=== PATIENT | male | born 1975 | race Caucasian/White ===

== ENCOUNTER 2025-02-17 17:42 | Inpatient (IN) | payer OTHER, SELFPAY ==
[2025-02-17] VITALS (8 sets, daily range): BP systolic 115–153; BP diastolic 64–93; BMI 28.7
--- NOTE | 2025-02-17 10:00 | ED.GENMED ---
History of Present Illness
General
Chief Complaint: Eye Problems
Source: patient and spouse
Exam Limitations: none
Time Seen by Provider: 02/17/25 09:47
History of Present Illness
History of Present Illness:
49-year-old male complaining of double vision. Started yesterday. Relatively sudden onset. Initially had some slight nausea with it. No headache now no nausea now no other neurologic symptoms. Patient is diabetic. No history of same. Patient
notes when he looks inferiorly it is better and worse with upward gaze. Double vision is a horizontal double vision not vertical
Past History
Past History
ED Past Medical History: Hypercholesterolemia and NIDDM
ED Past Surgical History: Urological
Social History
Tobacco: Non-smoker
Personal:
Living: with family
Employment: Employed
Family History
Family History: Early CAD (Father)
Review of Systems
Review of Systems
All Other Systems: Not applicable
Neurological: Denies dizzy, weakness or numbness
Phy Exam
Physical Exam
Physical Exam:
GENERAL: Alert and oriented in no apparent distress
EYE: Orbits normal.
NECK: Supple, no carotid bruit.
ENT: Pharynx without erythema
CARDIAC: Regular rate and rhythm without any obvious murmurs.
LUNGS: Clear breath sounds,normal
ABDOMEN: Soft, without focal tenderness or distention
NEUROLOGICAL: Alert and oriented , cranial nerves II through XII intact except some decreased upward gaze to the right eye. Pupils are equal in size. Small but reactive. Symmetrical. No lid lag. Ckswye-xa-bbyq is normal. Speech is normal. No
facial droop. Upper lower extremity strength normal. Light touch intact
SKIN: Warm and dry, no rash or lesion, no discoloration, skin intact.
MUSCULOSKELETAL: No edema,no deformity.Good color
PSYCH: Normal and appropriate interaction.
Course
Orders/Labs/Results
Orders:
Orders
02/17/25 10:03
Electrocardiogram (*1) Stat
Reason for Study: Other
Other Reason for Exam: neuro symptoms
Cardiac Monitoring- Treatment ONCE
EKG- Treatment ONCE
IV Insert/Care/Rem.- Treatment PRN
02/17/25 10:16
CT Head & Neck Angio W/wo IV Urgent
Comment:
Reason For Exam: Double vision
02/17/25 10:18
Consult Neurology [NEUROLOGY CONSULT] Urgent
Consulting Provider: Samson Del Castillo
Was physician already notified: Yes
02/17/25 10:35
Basic Metabolic Panel Urgent
Complete Blood Count/With Diff Urgent
MR Brain Without Contrast Urgent
Comment:
Reason For Exam: Double vision
Recent pill cam endoscopy?: No
02/17/25 13:50
Aspirin Chewable [Low Strength Aspirin] 81 mg PO NOW STA
Clopidogrel Bisulfate [Plavix] 75 mg PO NOW STA
Abnormal Lab Results
02/17/25
10:35
WBC 11.7 H 10^3/uL
(4.8-10.8)
MCHC 32.2 L g/dL
(33.0-37.0)
MPV 11.6 H fL
(7.4-10.4)
Absolute Neuts (auto) 9.0 H 10^3/uL
(1.4-6.5)
Neutrophils % 76.6 H %
(42.2-75.2)
Lymphocytes % 17.8 L %
(20.5-51.1)
BUN 21 H mg/dl
(9-20)
Glucose 213 H mg/dl
(70-99)
02/17/25 10:35
02/17/25 10:35
Vital Signs
Initial and Last Documented VS:
Initial Vital Signs
Temp Pulse Resp BP Pulse Ox
98.1 F 70 16 153/93 98
02/17/25 09:41 02/17/25 09:41 02/17/25 09:41 02/17/25 09:41 02/17/25 09:41
Last Documented Vital Signs
Temp Pulse Resp BP Pulse Ox
98.1 F 70 16 153/93 98
02/17/25 09:41 02/17/25 09:41 02/17/25 09:41 02/17/25 09:41 02/17/25 10:03
MDM/Problems Addressed
Differential Diagnosis Includes:
New onset double vision. I lean towards a 3rd cranial nerve issue. Workup in progress. Will discuss with neurology.
*Radiology
Radiology exam reviewed: radiology read reviewed (No acute findings on MRI. Common carotid narrowing. Dissection versus vasculitis versus hematoma)
*Pulse Oximetry
SaO2: 98
Oxygen Mode of Delivery: Room air
Patient hypoxic: no
*EKG
Interpreted by ED Provider?: Yes
Interpretation: normal
Comparison EKG: no changes
Heart Rate: 63
Rate: normal
Rhythm: sinus
[place]: normal axis
Interval: normal interval
QRS Pattern: normal QRS
Ischemia: no ischemia
*Critical Care Note
Total Time (30-74mins, 75-104mins- exclusive of procedures): Not Applicable
Update Note
Update Note:
Discussed with neurology. Recommend CTA/perfusion. And eventual MRI.
1355... Patient in MRI. I held on the aspirin and Plavix because I wanted to be sure there was no bleed. There is no bleed on CT. There is carotid narrowing in the right. Vasculitis dissection along the differential. Currently in MRI.
updated
Multiple discussions with neurology). Ultimately it is felt best to admit this patient expedite workup. MRI brain and neck. Echocardiogram.
ED Attending Note
-
Portions of this chart may have been created with voice recognition software.� Occasional wrong word or��sound alike� substitutions may have occurred due to the inherent limitations of voice recognition software.
Discharge Plan
Departure
Patient Disposition: Admit
Date of Disposition: 02/17/25
Time of Disposition: 16:06
Presentation/result/management discussed w/ accepting MD/DO: Neurology
Discharge Problem:
Double vision, Common carotid narrowing right common ca
Prescriptions:
No Action
pravastatin 40 mg tablet
40 mg PO DAILY
Theragen Tablet
1 tab PO DAILY
flaxseed oil [[place]-3 Flaxseed Oil] 1,000 mg Capsule
1,000 mg PO BID
insulin aspart U-100 [Novolog FlexPen U-100 Insulin] 100 unit/mL (3 mL) insulin pen
1 sliding scale dose SC AC
berberine-herbal drugs Capsule
1 cap PO BID
metformin 500 mg tablet
500 mg PO BID
insulin glargine [Basaglar KwikPen U-100 Insulin] 100 unit/mL (3 mL) insulin pen
12 unit SC HS
Referrals:
Esvin Vincent MD [Family Provider, Family Practice]
Interventions
Interventions:
*Risk Screen - Suicide Last Done: 02/17/25 09:41
*Neglect/Abuse Screening Last Done: 02/17/25 09:41
Discharge Date and Time
Print Language: CHILEAN
[2025-02-17 10:46] LABS: Hematocrit 46.6 % (39.0-52.0); Hemoglobin 15.0 g/dL (13.0-18.0); Mean Corp Hgb Conc. 32.2 g/dL (33.0-37.0); Mean Corpuscular Volume 87.3 fL (80.0-94.0); Nucleated Red Blood Cells % 0 % (-); Platelet Count 260 10^3/uL (130-400); Red Cell Dist. Width 12.9 % (11.5-14.5)
[2025-02-17 11:15] LABS: Blood Urea Nitrogen 21 mg/dl (9-20); Calcium 9.7 mg/dl (8.4-10.2); Carbon Dioxide 28 mmol/L (22-30); Chloride 103 mmol/L (98-107); Glucose 213 mg/dl (70-99); Potassium 4.8 mmol/L (3.5-5.1); Sodium 139 mmol/L (135-145); eGFR > 60.00
[2025-02-17] MEDS: LOW STRENGTH ASPIRIN 81 MG PO (14:52)
[2025-02-17] MEDS: PLAVIX 75 MG PO (14:52)
--- NOTE | 2025-02-17 15:23 | CON.NEURO4 ---
Consultation - Neurology 4
-
CONSULTING PHYSICIAN:
REFERRING PHYSICIAN:
DICTATED BY:
DATE/TIME OF REQUEST:
DATE/TIME OF CONSULTATION:
Reason for Consultation:
History of Present Illness:
This is a (age) year old (left/right) handed (male/female) who has presented to the hospital with (chief complaint). Patient's symptoms began (time) ago, when (describe).
- For stroke patients please mention last known well time.
- Describe associated symptoms, if any. Describe any treatment taken and intervention made.
- Describe the current status of symptoms.
- Describe if patient is compliant with current medications - name the medications and follow up with the physician.
- Describe if patient has had any similar symptoms in the past.
- For stroke patients, mention if patient has had a prior stroke and if there are any residual deficits.
- If the history has been obtained from sources other than the patient, mention 'this history has been contributed to by'
and name the source: family/medical record/senior care/caregiver/nursing ect.
Past Medical History:
Surgical History:
Family History:
Social History:
Allergies:
Home Medications:
Review of Symptoms:
Patient denies any fever, headache, chest pain, shortness of breath, GI or symptoms.
�Per the HPI.�All systems are reviewed negative except above.
�- Remove any of these problems that patient may have complained about in the HPI.
�- If patient is unresponsive, intubated or demented, say 'Per the HPI. I am unable to obtain a complete review of systems�because of patient's inability to provide history.'
Vital Signs:
The patient has a blood pressure of ( ) , heart rate ( ) , temperature ( ) , respiratory rate ( ) and a pulse ox of ( ) on
(room air / oxygen by nasal cannula / ventilator).
Physical Exam:
The patient is afebrile, heart sounds S1 and S2 are (regular / irregular), and chest is clear to auscultation bilaterally.
- If not clear, describe.
NIH Stroke Scale (if applicable):
I performed the NIH stroke scale on the patient on (date & time). The patient scored ( ) points on the NIH stroke scale assessment, which were assigned as follows:
Neurologic Examination:
The patient is awake, alert and oriented x 3. (He/She) is able to follow commands and answer questions appropriately. There is no aphasia or dysarthria. On cranial nerve assessment, pupils are 3 mm bilateral, round and reactive to light and
accommodation. Visual mitchell are full. Extraocular movements are intact. Facial sensations are intact and bilaterally symmetrical, there is no facial asymmetry. Hearing is intact bilaterally to normal conversation volume. Tongue palate and uvula
are midline. Sternocleidomastoid strengths are full bilaterally. Motor strengths are 5/5 bilateral upper and lower extremities on medical research [place] scale. There is no drift or involuntary movement noted. Deep tendon reflexes are 2+ bilateral
upper and lower extremities and Babinski is absent bilaterally. Sensations of pain, touch, temperature and vibration are intact and bilaterally symmetrical. There was no extinction noted on double simultaneous stimulation. Coordination is intact by
finger to nose bilaterally.
Lab Results:
Neuro Imaging:
Impression:
(Mr. / MsBuck) YADIRA COLEMAN is a 49 year old M who has presented to the hospital with (symptoms/chief complaint).
Differentials for the patient's presentation include:
1.
2.
3.
4.
Patient has the following risk factors for their symptoms:
IV Tenecteplase/IAT candidacy
Recommendations:
1.
2.
3.
Discussed patient care with:
--- NOTE | 2025-02-17 15:31 | CON.NEURO4 ---
Consultation - Neurology 4
-
CONSULTING PHYSICIAN: Samson Del Castillo MD
REFERRING PHYSICIAN: Gama Buck MD
DICTATED BY: Samsno Del Castillo MD
DATE/TIME OF REQUEST: 02/17/2025
DATE/TIME OF CONSULTATION: 02/17/2025
Reason for Consultation: Double vision
Assessment and Plan:
The patient is a 49 years old male, with a past medical history of diabetes mellitus and hypercholesterolemia, who presented with complaint of double vision that started yesterday. The patient's NIHSS = 0. He is not a candidate for TNK
administration as he is outside the time window. 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
The plan is to keep him on aspirin 81 mg daily, plavix 75 mg daily and pravastatin.
CTA head/neck showed 2.2 cm in length segment of mild luminal narrowing (less than 50% diameter) in the right common carotid artery with decreased attenuation in the anteromedial vessel wall. Diagnostic possibilities are (1) inflammatory
vasculitis, (2) an intramural hematoma, or (3) a dissection.
The plan is to get MRA brain and MRA neck to follow up on the CTA Head/neck which was done.
Discussed with Dr. Gama Buck in the ER.
History of Present Illness:
The patient is a 49 years old male, with a past medical history of diabetes mellitus and hypercholesterolemia, who presented with complaint of double vision that started yesterday. The patient says that he woke up fine yesterday morning and the
symptoms started at around 8 AM yesterday. The patient denies any speech difficulty or any focal weakness of arms or legs. The patient says that he sees 1 image on top of the other.
Past Medical History: Hypercholesterolemia and diabetes mellitus.
Review of Symptoms:
The 12 point review of systems was negative aside from as given in the history of present illness above.
Neurologic Examination:
The patient is awake, alert and oriented x 3. He is able to follow commands and answer questions appropriately. There is no aphasia or dysarthria. On cranial nerve assessment, the cranial nerves II to XII are grossly intact. The pupils are about 3
mm bilaterally and reactive to light. The visual mitchell are full to confrontation. The motor strength is 5/5 bilaterally in the upper and lower extremities. The sensations are intact bilaterally and there is no limb ataxia seen.
Neuroimaging:
MRI of the brain was done that did not show an acute infarction.
CTA head/neck showed 2.2 cm in length segment of mild luminal narrowing (less than 50% diameter) in the right common carotid artery with decreased attenuation in the anteromedial vessel wall. Diagnostic possibilities are (1) inflammatory
vasculitis, (2) an intramural hematoma, or (3) a dissection.
Medications
-
Home Medications
�Medication �Instructions �Recorded
aspirin 325 mg tablet 325 mg PO DAILY PRN pain 09/05/13
docosahexaenoic acid (dha)-epa 120 1 cap PO DAILY Supplement 09/05/13
mg-180 mg capsule
flaxseed oil 1,000 mg capsule mg PO DAILY Supplement 09/05/13
multivitamin (Daily Multiple 1 ea PO DAILY Supplement 09/05/13
tablet)
vitamin B complex 1 ea PO DAILY Supplement 09/05/13
amoxicillin 875 mg-potassium 1 tab PO BID #14 tabs 01/02/22
clavulanate 125 mg tablet
blood sugar diagnostic ([facility] #200 ea 01/02/22
Verio test strips)
doxycycline hyclate 100 mg capsule 100 mg PO BID #14 caps 01/02/22
insulin glargine 100 unit/mL (3 10 unit (0.1 mL) SC HS Diabetes #5 01/02/22
mL) subcutaneous pen (Basaglar ea
KwikPen U-100 Insulin)
insulin lispro 100 unit/mL 5 unit (0.05 mL) SC AC Diabetes #5 01/02/22
subcutaneous pen (Humalog KwikPen ea
(U-100) Insulin)
lancets 30 gauge ([employer] #200 ea 01/02/22
Lancets)
metformin 500 mg tablet 500 mg PO BID@0800,1700 #60 tabs 01/02/22
Vital Signs and Labs
-
Vital Signs and Labs:
Vital Signs
Temp Pulse Resp BP Pulse Ox
36.7 C 70 16 153/93 98
02/17/25 09:41 02/17/25 09:41 02/17/25 09:41 02/17/25 09:41 02/17/25 10:03
Lab Results
02/17/25 10:35
02/17/25 10:35
Sodium 139 mmol/L (135-145) 02/17/25 10:35
Potassium 4.8 mmol/L (3.5-5.1) 02/17/25 10:35
BUN 21 mg/dl (9-20) H 02/17/25 10:35
Glucose 213 mg/dl (70-99) H 02/17/25 10:35
Calcium 9.7 mg/dl (8.4-10.2) 02/17/25 10:35
Physical Exam
-
General: Well Developed, Well Nourished and No Apparent Distress
--- NOTE | 2025-02-17 16:35 | W.PN.UPDATE ---
Update Note
Progress Note Update
49-year-old male with IDDM, HTN, HLD, family history of premature CAD, obesity, presenting to the ED with a complaint of double vision. Symptoms started yesterday near 8 AM suddenly and initially associated with nausea. Denies history of previous
presentations. Double vision noted, states he sees objects stacked on top of one another. States its improved when he looks superiorly though worse with upward gaze. AFVSS on arrival. Labs with WBC 11.7, neutrophilic predominance, glucose 213.
CTA head and neck showed 2.2 cm length of luminal narrowing to the right common carotid artery likely less than 50% consistent with vasculitis versus dissection versus intramural hematoma. MRI brain was without acute findings including infarct.
Was evaluated by neurology in the ED who recommended DAPT and statin with MRA head and neck to further assess right carotid finding.
AAO x 4, NAD. No FND or CN deficits other than vision (improves with coverage of either eye), no nystagmus, PERRL, EOMI. Benign cardiopulmonary and abdominal exam. No edema, palpable pulses, skin warm and dry. No gross deformities
#Vertical diplopia. Concern for right common carotid dissection v. vasculitis v. Intramural hematoma on CTA head and neck. Neurology evaluated, started DAPT and recommended to continue statin therapy. Will check inflammatory markers with ESR and
CRP. Follow-up MRA head and neck. Consider serologies and digital subtraction angiography based off of MRA results. Monitor neurochecks every 4 hours. Monitor telemetry. Vascular surgery consult
#Hypertension. Not currently on any outpatient medications. Will start as needed hydralazine for goal of normotension in the context of possible carotid dissection, avoid labetalol with HR near 60/min.
#Dyslipidemia. No known ASCVD history. Check lipid panel and continue with statin at current dose for now, consider escalating to high intensity if LDL above goal with diabetes
#IDDM 2. Home regimen includes Lantus 12 units nightly, ISS, metformin 500 twice daily. Hold metformin and continue with insulin regimen. BG goal 140-180
#Leukocytosis. WBC mildly elevated. Likely reactive to above process. Trend CBC and temperature curve. No indication for antibiotics at this time
Diet -- Diabetic
Thromboprophylaxis -- SQ Lovenox
CODE STATUS -- Full
Disposition -- Admit to telemetry
--- NOTE | 2025-02-17 17:30 | HPS.HSE ---
Family Physician
-
Family Physician: Esvin Vincent
Chief Complaint
-
Double vision
History of Present Illness
49-year-old male complaining of double vision. Started yesterday. Relatively sudden onset. Initially had some slight nausea with it. No headache now no nausea now no other neurologic symptoms. Patient is diabetic. No history of same. Patient
notes when he looks inferiorly it is better and worse with upward gaze. Double vision is a horizontal double vision not vertical.
states he sees objects stacked on top of one another. States its improved when he looks superiorly though worse with upward gaze. AFVSS on arrival. Labs with WBC 11.7, neutrophilic predominance, glucose 213. CTA head and neck showed 2.2 cm
length of luminal narrowing to the right common carotid artery likely less than 50% consistent with vasculitis versus dissection versus intramural hematoma. MRI brain was without acute findings including infarct. Was evaluated by neurology in the
ED who recommended DAPT and statin with MRA head and neck to further assess right carotid finding.
Medical History
Past Medical History
Past Medical History: Reports Hypercholesterolemia, IDDM and Other
Additional Past Medical History:
Hypertension
Past Surgical History: Reports None
Social History
Tobacco: Non-smoker
Alcohol: None
Personal:
Living: With Family
Employment: Employed
Family History
Family History: Not pertinent
Allergies / Home Medications
Allergies reflects when Allergies were last updated in [facility].
Home Medications with original date entered in [facility]
Allergy/Medication List:
Allergies
Allergy/AdvReac Type Severity Reaction Status Date / Time
No Known Allergies Allergy Verified 02/17/25 09:44
Home Medications
berberine-herbal drugs capsule 1 cap PO BID 02/17/25
flaxseed oil 1,000 mg capsule 1,000 mg PO BID 02/17/25
insulin aspart U-100 100 unit/mL (3 mL) subcutaneous pen (Novolog FlexPen U-100 Insulin aspart) 1 sliding scale dose SC AC 02/17/25
insulin glargine 100 unit/mL (3 mL) subcutaneous pen (Basaglar KwikPen U-100 Insulin) 12 unit SC HS Diabetes 02/17/25
metformin 500 mg tablet 500 mg PO BID 02/17/25
pravastatin 40 mg tablet 40 mg PO DAILY 02/17/25
therapeutic multivitamin 1 tab PO DAILY 02/17/25
Review of Systems
-
History Source: Patient
EENT: Reports Other (double vision in both eye)
Respiratory: Reports No Symptoms
Cardiac: Reports No Symptoms
Abdomen/GI: Reports Nausea and Vomiting
: Reports No Symptoms
Musculoskeletal: Reports No Symptoms
Physical Exam
Vital Signs
Vital Signs
Temp Pulse Resp BP Pulse Ox
98.1 F 63 13 126/79 95
02/17/25 09:41 02/17/25 17:00 02/17/25 11:00 02/17/25 17:00 02/17/25 17:00
Physical Exam
General: Well Developed, Well Nourished and No Apparent Distress
Respiratory: Clear
Cardiac: S1/S2 and Regular Rhythm
GI: Soft, Non Tender, Non Distended and Normal Bowel Sounds
Musculoskeletal: No Clubbing and No Cyanosis
Neuro: Awake, Alert and Nonfocal/grossly intact
Laboratory Results
-
02/17/25 10:35
02/17/25 10:35
Impression/Plan
-
49-year-old male with IDDM, HTN, HLD, family history of premature CAD, obesity, presenting to the ED with a complaint of double vision. Symptoms started yesterday near 8 AM suddenly and initially associated with nausea.
Brain MRI, no acute abnormality
CT Head & Neck Angio W/wo IV :2.2 cm in length segment of mild luminal narrowing (less than 50% diameter) in the right common carotid artery, Less than 50% diameter stenosis in the proximal left ICA and the origin of the left vertebral artery.
#Vertical diplopia
Concern for right common carotid dissection v. vasculitis v. Intramural hematoma on CTA head and neck
Neurology evaluated, started DAPT and recommended to continue statin therapy
Will check inflammatory markers with ESR and CRP and if elevated will check ANCA
Follow-up MRA head and neck
Consider serologies and digital subtraction angiography based off of MRA results
Monitor neurochecks every 4 hours
Monitor telemetry
Vascular surgery consult
#Hypertension
Not currently on any outpatient medications
Will start as needed hydralazine for goal of normotension in the context of possible carotid dissection
avoid labetalol with HR near 60/min.
#Dyslipidemia
No known ASCVD history
Check lipid panel and continue with statin at current dose for now, consider escalating to high intensity if LDL above goal with diabetes
#IDDM 2
Home regimen includes Lantus 12 units nightly, ISS, metformin 500 twice daily
Hold metformin
continue with insulin regimen
BG goal 140-180
#Leukocytosis
WBC mildly elevated. Likely reactive to above process
Trend CBC and temperature curve
No indication for antibiotics at this time
Diet -- Diabetic
Thromboprophylaxis -- SQ Lovenox
CODE STATUS -- Full
Disposition -- Admit to telemetry
--- NOTE | 2025-02-17 18:18 | EDCM ---
CM reviewed chart and met with pt bedside in ED. Lives with his , split level home, 6 [address], 7 additional steps to bedroom and full bath.
Independent in ADLs, personal care and ambulation at baseline. No DME.
No hx VN or SNF
PCP: Esvin Vincent
Pharmacy: [facility]
Anticipate discharge home, CM will continue to follow for any discharge planning needs.
[2025-02-17 18:45] LABS: C-Reactive Protein 27.10 mg/L (0.0-10.00)
[2025-02-17] MEDS: LOVENOX 40 MG SC (21:04)
[2025-02-17] MEDS: LIPITOR 40 MG PO (21:04)
[2025-02-17 21:16] LABS: Glucose - Point of Care 108 mg/dl (70-99)
[2025-02-17] MEDS: LANTUS 0.12 UNITS SC (22:17)
[2025-02-18 03:12] VITALS: BP 115/70
[2025-02-18 06:57] LABS: Hematocrit 43.3 % (39.0-52.0); Hemoglobin 13.7 g/dL (13.0-18.0); Mean Corp Hgb Conc. 31.6 g/dL (33.0-37.0); Mean Corpuscular Volume 86.8 fL (80.0-94.0); Nucleated Red Blood Cells % 0 % (-); Platelet Count 270 10^3/uL (130-400); Red Cell Dist. Width 13.1 % (11.5-14.5)
[2025-02-18 07:00] VITALS: BP 127/77
[2025-02-18 07:34] LABS: Blood Urea Nitrogen 18 mg/dl (9-20); Calcium 9.7 mg/dl (8.4-10.2); Carbon Dioxide 32 mmol/L (22-30); Chloride 104 mmol/L (98-107); Estimated Creatinine Clearance 82 ml/min; Glucose 116 mg/dl (70-99); HDL Cholesterol 40 mg/dl; LDL Cholesterol, Calculated 119 mg/dl; Magnesium 2.1 mg/dl (1.6-2.3); Potassium 5.0 mmol/L (3.5-5.1); Sodium 142 mmol/L (135-145); Very Low Density Lipoprotein 42 mg/dl (0-30); eGFR > 60.00
[2025-02-18 08:08] LABS: Glucose - Point of Care 121 mg/dl (70-99)
--- NOTE | 2025-02-18 08:29 | W.PN.UPDATE ---
Update Note
Progress Note Update
I have independently evaluated the patient at the bedside. I have reviewed the case with the resident and agree with documentation unless otherwise specified.
AFVSS this morning. Remains with visual deficits. Blood pressure improved, SBP 115 mmHg this morning
AAO x 4, NAD. No FND or CN deficits other than vision (improves with coverage of either eye), no nystagmus, PERRL, EOMI. Benign cardiopulmonary and abdominal exam. No carotid bruits. No edema, palpable pulses, skin warm and dry. No gross
deformities
#Vertical diplopia due to right common carotid artery dissection v. hematoma. MRA yesterday with likely hematoma versus dissection, lower suspicion for inflammatory lesion. Neurology evaluated, started DAPT and recommended to continue statin
therapy. Evaluated by vascular this morning who recommended no inpatient intervention, patient should follow-up in vascular surgery office. Monitor neurochecks every 4 hours. Monitor telemetry. Will plan to discharge on DAPT and high intensity
statin to bridge him until his follow-up appointment with vascular surgery
#Hypertension. Not currently on any outpatient medications. Continue on as needed hydralazine for goal normotension.
#Dyslipidemia. LDL here 115. Transitioned from pravastatin to high intensity statin. LDL goal < 70
#IDDM 2. Home regimen includes Lantus 12 units nightly, ISS, metformin 500 twice daily. Hold metformin and continue with insulin regimen. BG goal 140-180
Diet -- Diabetic
Thromboprophylaxis -- SQ Lovenox
CODE STATUS -- Full
Disposition -- Expected discharge today
[2025-02-18] MEDS: THERAGRAN 1 TABLET PO (08:32)
[2025-02-18] MEDS: PLAVIX 75 MG PO (08:32)
[2025-02-18] MEDS: LOW STRENGTH ASPIRIN 81 MG PO (08:32)
--- NOTE | 2025-02-18 09:00 | CON.VAS ---
Consultation
Consultation Request
Reason for Consultation: ? carotid dissection
Medical History
-
History of Present Illness:
The patient is a 49 years old male, with a past medical history of diabetes mellitus and hypercholesterolemia, who presented with complaint of double vision that started yesterday around 8am. He described it as seeing one image on top of the other.
This morning this has fortunately almost entirely resolved. The patient denies any speech difficulty or any focal weakness of arms or legs. He denies any neck trauma
Past Medical History
Past Medical History: Hypercholesterolemia and IDDM
Family History
Family History: Reviewed & Not Pertinent
Allergies / Home Medications
Allergy/AdvReac Type Severity Reaction Status Date / Time
No Known Allergies Allergy Verified 02/17/25 09:44
�Medication �Instructions �Recorded �Confirmed �Type
berberine-herbal drugs capsule 1 cap PO BID Supplement 02/17/25 02/17/25 History
flaxseed oil 1,000 mg capsule 1,000 mg PO BID Supplement 02/17/25 02/17/25 History
insulin aspart U-100 100 unit/mL 1 sliding scale dose SC AC Diabetes 02/17/25 02/17/25 History
(3 mL) subcutaneous pen (Novolog
FlexPen U-100 Insulin aspart)
insulin glargine 100 unit/mL (3 12 unit SC HS Diabetes 02/17/25 02/17/25 History
mL) subcutaneous pen (Basaglar
KwikPen U-100 Insulin)
metformin 500 mg tablet 500 mg PO BID Diabetes 02/17/25 02/17/25 History
pravastatin 40 mg tablet 40 mg PO DAILY High Cholesterol 02/17/25 02/17/25 History
therapeutic multivitamin 1 tab PO DAILY Supplement 02/17/25 02/17/25 History
Review of Systems
-
History Source: Patient
All other systems: Negative unless noted
Physical Exam
Vital Signs
Temp Pulse Resp BP Pulse Ox
97.8 F 60 16 127/77 97
02/18/25 07:00 02/18/25 07:00 02/18/25 07:00 02/18/25 07:00 02/18/25 07:00
Lab Results
02/18/25 06:17
02/18/25 06:17
Physical Exam
General: Well Developed
HEENT: Normocephalic and Moist Mucous Membranes
Cardiac: S1/S2 and Regular Rhythm
GI: Soft and Non Tender
Neuro: AO x 3, No Motor Deficits and Nonfocal/Grossly Intact
Psych: Calm
Assessment / Plan
-
49 yo M with double vision. I personally reviewed his imaging. He had a CTA of the head and neck which shows minimal to no atherosclerotic disease within his transcervical carotid arteries. His vertebral arteries are widely patent. His right common
carotid artery has a lesion which appears to me to be likely a focal dissection. This causes <50% narrowing. Fortunately his symptoms have improved significantly. Agree with dapt and statin. No vascular intervention. Should follow up in the office
for surveillance.
Data Reviewed
-
CT Scan: Image Personally Visualized and interpreted
--- NOTE | 2025-02-18 09:28 | W.PN.HOSP.TC ---
Today's Communication/Plan
-
vascular surgery consult appreciated and no intervention needed at this time and recs to follow up as an out patient
patient DG home on DAPT and high potency statin
Assessment / Plan
Assessment / Plan
49-year-old male complaining of double vision. Started yesterday. Relatively sudden onset. Initially had some slight nausea with it. No headache, no nausea now no other neurologic symptoms. Patient is diabetic. No history of same. Patient
notes when he looks inferiorly it is better and worse with upward gaze.
states he sees objects stacked on top of one another. States its improved when he looks superiorly though worse with upward gaze. AFVSS on arrival. Labs with WBC 11.7, neutrophilic predominance, glucose 213.
CTA head and neck showed 2.2 cm length of luminal narrowing to the right common carotid artery likely less than 50% consistent with vasculitis versus dissection versus intramural hematoma.
MRI brain was without acute findings including infarct.
MRA head which showed 1.8 cm in length DISSECTION or INTRAMURAL HEMATOMA in the RIGHT COMMON CAROTID ARTERY with associated less than 50% diameter luminal narrowing.
Assessment and Plan:
#Vertical diplopia
Concern for right common carotid dissection v. vasculitis v. Intramural hematoma on CTA head and neck
MRA head/neck: right common carotid artery luminal narrowing 1.5 cm in length , dissection v. Intramural hematoma
Neurology evaluated, started DAPT and recommended to continue statin therapy
Will check inflammatory markers with ESR wnl and CRP 27.10 and if elevated will check ANCA
Follow-up MRA head and neck
Consider serologies and digital subtraction angiography based off of MRA results
Monitor neurochecks every 4 hours
Monitor telemetry
Vascular surgery consult and no intervention needed at this time and recs to follow up as an out patient
#Hypertension
Not currently on any outpatient medications
Will start as needed hydralazine for goal of normotension in the context of possible carotid dissection
avoid labetalol with HR near 60/min.
#Dyslipidemia
No known ASCVD history
Check lipid panel and continue with statin at current dose for now, consider escalating to high intensity if LDL above goal with diabetes
#IDDM 2
Home regimen includes Lantus 12 units nightly, ISS, metformin 500 twice daily
Hold metformin
follow Hb a1c
continue with insulin regimen
BG goal 140-180
#Leukocytosis
WBC mildly elevated. Likely reactive to above process, improved today
Trend CBC and temperature curve
No indication for antibiotics at this time
Diet -- Diabetic
Thromboprophylaxis -- SQ Lovenox
CODE STATUS -- Full
Disposition -- Admit to telemetry
Anticipated Discharge: Today
Subjective/Interval History
-
Date of Service: February 18, 2025
patient stated that his vertical diplopia has been improving , now more when he looks to the right side and more less when he looks to the left side. no nausea, headache, vomiting, tingling , numbness, fever or chills.
Objective Data
-
Labs:
Laboratory Results
02/18/25
06:17
WBC 10.7
Hgb 13.7
Hct 43.3
Plt Count 270
Sodium 142
Potassium 5.0
Chloride 104
Carbon Dioxide 32 H
BUN 18
Creatinine 1.1
Glucose 116 H
Calcium 9.7
Vital Signs:
Vital Signs
Temp Pulse Resp BP Pulse Ox
97.8 F 60 16 127/77 97
02/18/25 07:00 02/18/25 07:00 02/18/25 07:00 02/18/25 07:00 02/18/25 07:00
Review of Systems
-
History Source: Patient
Respiratory: Reports No Symptoms
Cardiac: Reports No Symptoms
Abdomen/GI: Reports No Symptoms
Genitourinary: Reports No Symptoms
Musculoskeletal: Reports No Symptoms
Neuro: Reports Other (bilateral vertical diplopia )
Physical Exam
-
General: Well Developed, Well Nourished, No Apparent Distress and Comfortable
Respiratory: Clear to Auscultation
Cardiac: Regular Rhythm and S1/S2
GI: Soft, Nontender and Nondistended
Musculoskeletal: No Clubbing, No Cyanosis and No Edema
Neuro: Awake, Alert and Oriented
Psych: Calm
[2025-02-18 09:30] VITALS: BP 138/73; PULSE 67
--- NOTE | 2025-02-18 10:02 | PTOTSP ---
The patient is independent with ambulation and elevations, demonstrating no strength or mobility deficits. No PT needs identified at this time, will sign off.
[2025-02-18 11:00] VITALS: BP 136/74
[2025-02-18 12:06] LABS: Glucose - Point of Care 118 mg/dl (70-99)
--- NOTE | 2025-02-18 12:41 | CM ---
PT and OT have evaluated patient. No needs identified for either therapy. Pt is discharged to home with .
Plan: Home, no needs
[2025-02-18 14:25] LABS: Glycohemoglobin (HgbA1c) 6.7 % (4.0-5.6)
--- NOTE | 2025-02-18 15:12 | W.DCSUMMARY ---
Discharge Summary
Discharge Data
Date of Admission: 02/17/25
Date of Discharge: 02/18/25
-
Pending Results: No
Hospital Course
Discharging Physician:
Sallie Heard
Disposition:
Home
Primary Care Physician:
Esvin Vincent
Principal Discharge Diagnosis:
Right common carotid artery dissection
Vertical diplopia
Dyslipidemia
Diabetes
Chronic Discharge Diagnosis:
Hypercholesterolemia, IDDM, Hypertension
Hospital Course:
49-year-old male presented to the ER complaining of double vision, dizziness, nausea and one episode of vomiting started on 02/16/2025.Patient has to cover one eye to avoid dizziness. He notes when he looks inferiorly it is better and worse with
upward gaze. Double vision is vertical. AFVSS on arrival. Labs with WBC 11.7, neutrophilic predominance, glucose 213. There was no focal neurological deficit on examination. Neurology consulted, and CTA head and neck showed 2.2 cm length of luminal
narrowing to the right common carotid artery likely less than 50% consistent with vasculitis versus dissection versus intramural hematoma. MRI brain was without acute findings including infarct. Was evaluated by neurology in the ED who recommended
DAPT and high intensity statin with MRA head and neck which showed 1.8 cm in length DISSECTION or INTRAMURAL HEMATOMA in the RIGHT COMMON CAROTID ARTERY with associated less than 50% diameter luminal narrowing. Patient admitted for observation and
for further evaluation by vascular surgery. During hospitalization his Hb A1c 6.7, Lipid panels LDL 119, TG 211, Total Chol.201, VLDL 42. ESR wnl, CRP 27.10, WBC wnl. AFVSS. Patient diplopia improving on 02/18/2025. Patient stated that his diplopia
is now only when he looks to the right side. NephroCheck monitored every 4 hours with no neurological deficit. Patient started on high intensity statin medication given him a history of DM and and hypercholesterolemia. He has been seen by vascular
surgeon who recommended no intervention other than continue DAPT (Plavix and Aspirin) and to follow up in the office as an outpatient for surveillance.
Patient remained stable and discharged on Atorvastatin 40 mg and DAPT (Plavix and Aspirin). Blood pressure cuff sent to the pharmacy for home Blood pressure monitor with instructions.
Patient advised to follow up with his PCP and vascular surgeon within one week after the discharge.
Patient discharged in stable condition.
Important Radiological Findings:
CTA HEAD and NECK with and without IV contrast on 02/17/2025
IMPRESSION:
NECK CTA:
1. 2.2 cm in length segment of mild luminal narrowing (less than 50% diameter) in the right common carotid artery with decreased attenuation in the anteromedial vessel wall. Diagnostic possibilities are (1) inflammatory vasculitis, (2) an
intramural hematoma, or (3) a dissection.
2. Less than 50% diameter stenosis in the proximal left ICA.
3. Less than 50% diameter stenosis of the origin of the left vertebral artery.
4. Moderate discogenic degenerative disease at C5/C6 and C6/C7 with disc-osteophyte complexes at both levels causing mild spinal cord compression and central canal stenosis.
HEAD CTA:
1. No CTA evidence for large vessel intracranial arterial stenosis or occlusion in either the anterior or posterior intracranial circulation.
2. Minimal periventricular white matter leukoaraiosis.
3. No CT evidence for acute intracranial hemorrhage or transcortical infarct.
4. Small bilateral maxillary sinus mucous retention cysts.
MR Brain Without Contrast 02/17/2025
IMPRESSION:
1. Minimal periventricular white matter leukoaraiosis in the frontal lobes.
2. Mild paranasal sinus mucosal disease.
MRA Brain/[place] without contrast 02/17/2025
IMPRESSION:
1. Minimal intracranial atherosclerotic disease.
2. No MRA evidence for large vessel intracranial arterial stenosis or occlusion.
3. No MRA evidence for intracranial cerebral aneurysm or arteriovenous malformation.
MRA Neck With Contrast 02/17/2025
IMPRESSION:
1. 1.8 cm in length DISSECTION or INTRAMURAL HEMATOMA in the RIGHT COMMON CAROTID ARTERY with associated less than 50% diameter luminal narrowing.
2. No stenosis in either proximal internal carotid artery.
3. No stenosis or occlusion of either vertebral artery.
Discharge Plan
-
Patient Disposition: Home (Routine Discharge)
Discharge Diagnosis/Procedures: Right common carotid artery dissection
Vertical diplopia
Dyslipidemia
Diabetes
Condition: Fair
Diet: Diabetic, Carb Controlled and No added salt
Activity: As tolerated
Additional Activity: No driving until you are seen by your family doctor in the office
Driving Restrictions: Not until seen by your Dr
Bathing Restrictions: None
Blood Work: None
Others Tests: Follow-up in the vascular surgeons office for further testing considerations
Instructions: Checking your blood pressure at home, Blood pressure measurement
Referrals:
Esvin Vincent MD [Family Provider, Family Practice] - in less than 1 week
Rajan Lee MD [Active, Vascular Surgery] - in less than 1 week
Additional Discharge Medication Instructions: Continue aspirin 81 mg daily and Plavix 75 mg daily until seen by vascular surgery in office
Continue atorvastatin 40 mg nightly indefinitely, stop pravastatin
Monitor home blood pressures twice daily with BP cuff, record values and a booklet and take them with you to your family doctor's appointment. If blood pressure reading >180 then call your family doctor or vascular surgery referral
Prescriptions:
New
atorvastatin 40 mg Tablet
40 mg PO QPM Qty: 30 0RF
aspirin 81 mg Tablet,Chewable
81 mg PO DAILY 30 Days Qty: 30 0RF
clopidogrel 75 mg Tablet
75 mg PO DAILY 30 Days Qty: 30 0RF
(DME) Blood Pressure Cuff Misc
See Rx Instructions .Route Qty: 1 0RF
Rx Instructions:
As directed
Continued
therapeutic multivitamin Tablet
1 tab PO DAILY
flaxseed oil 1,000 mg Capsule
1,000 mg PO BID
insulin aspart U-100 [Novolog FlexPen U-100 Insulin] 100 unit/mL (3 mL) insulin pen
1 sliding scale dose SC AC
metformin 500 mg tablet
500 mg PO BID
insulin glargine [Basaglar KwikPen U-100 Insulin] 100 unit/mL (3 mL) insulin pen
12 unit SC HS
Discontinued
pravastatin 40 mg tablet
40 mg PO DAILY
berberine-herbal drugs Capsule
1 cap PO BID
Discharge Orders:
Discharge Patient (As Directed); Ordered 02/18/25
Ordered By: Sallie Lara
Discharge Date and Time
Discharge Date/Time: 02/18/25 13:25
Print Language: KOSOVAN
== END 2025-02-18 13:25 | disposition home or self-care (01) | DRG 67 ==
LOC: 4 EAST ACU 17:42
PROVIDERS: Specialist Research Data Abstracter/Coder; ADMITTING PHYSICIAN Internal Medicine; CONSULT PHYSICIAN Psychiatry & Neurology Neurology; CONSULT PHYSICIAN Surgery; EMERGENCY PHYSICIAN Emergency Medicine; FAMILY PHYSICIAN Family Medicine
DX: I65.22 Occlusion and stenosis of left carotid artery (principal); I77.71 Dissection of carotid artery; G95.20 Unspecified cord compression; E11.9 Type 2 diabetes mellitus without complications; I10 Essential (primary) hypertension; E78.00 Pure hypercholesterolemia, unspecified; Z79.02 Long term (current) use of antithrombotics/antiplatelets; Z79.4 Long term (current) use of insulin; Z79.82 Long term (current) use of aspirin; Z82.49 Family history of ischemic heart disease and other diseases of the circulatory system
CPT/HCPCS: 70496; 70498; 70544; 70548; 70551; 80048; 80061; 82962; 83036; 83735; 85025; 85652; 86140; 93005; 97161; 99285; A9585; Q9967